=== PATIENT | male | born 1940 | race Caucasian/White ===

== ENCOUNTER 2020-07-23 11:49 | Outpatient (CLI) | payer MEDICARE, BC ==
[2020-07-23 20:47] LABS: SARS-CoV-2 PCR by NAA Not Detected (NotDetected)
== END 2020-07-23 11:50 | disposition home or self-care (01) ==
LOC: CSHLAB 11:49
PROVIDERS: ATTEND Physician Assistant Medical
DX: Z20.822 Contact with and (suspected) exposure to COVID-19 (principal); R13.19 Other dysphagia; K22.2 Esophageal obstruction; C34.90 Malignant neoplasm of unspecified part of unspecified bronchus or lung
CPT/HCPCS: 87635; U0003; U0005

== ENCOUNTER 2020-07-28 09:02 | Outpatient (CLI) | payer MEDICARE, BC | END 2020-07-28 09:03 | disposition home or self-care (01) | LOC: CSHRAD 09:02 | PROVIDERS: ATTEND Physician Assistant Medical | DX: R13.19 Other dysphagia (principal); K22.2 Esophageal obstruction; C34.90 Malignant neoplasm of unspecified part of unspecified bronchus or lung | CPT/HCPCS: 74220 ==